=== PATIENT | female | born 1985 | race African-American/Black ===

== ENCOUNTER 2022-12-10 21:09 | Emergency (ER) | payer OTHER ==
[~2022-12-10] VITALS: Ht 149.9 cm; Wt 62.7 kg
[2022-12-10] MEDS ORDERED: DOXY-CAPS100 MG PO (23:46)
[2022-12-10] MEDS ORDERED: PREDNISONE20 MG PO (23:46)
[2022-12-11 00:06] VITALS: BP 114/78
== END 2022-12-11 00:06 | disposition home or self-care (01) | DRG 607 ==
LOC: ED 21:09
DX: S80.862A Insect bite (nonvenomous), left lower leg, initial encounter (principal); W57.XXXA Bitten or stung by nonvenomous insect and other nonvenomous arthropods, initial encounter

== ENCOUNTER 2024-04-04 00:36 | Emergency (ER) | payer OTHER ==
[~2024-04-04] VITALS: Ht 149.9 cm; Wt 90.0 kg
[~2024-04-04 00:36] MED LIST: DOXY-CAPS100 MG PO; PREDNISONE20 MG PO
[2024-04-04 00:46] VITALS: BP 177/99
[2024-04-04] MEDS ORDERED: Pantoprazole Sodium 40 MG VIAL (Protonix) IV STA (00:46)
[2024-04-04] MEDS ORDERED: SODIUM CHLORIDE 0.9% 1,000 ML IV STA (00:46)
[2024-04-04] MEDS ORDERED: LIDOCAINE VISCOUS 2% 15 ML UDC PO ONE ×2 (00:50→03:05)
[2024-04-04] MEDS ORDERED: ACETAMINOPHEN 500 MG TAB PO ONE (00:50)
[2024-04-04] MEDS ORDERED: ALUM & MAG HYDROX-SIMETHICONE 30 ML PO ONE ×2 (00:50→03:05)
[2024-04-04] MEDS ORDERED: PROMETHAZINE HCL 25 MG/ML AMP IV ONE (00:50)
[2024-04-04 01:14] VITALS: BP 155/126
[2024-04-04 01:16] LABS: BASO% 0.4 % (0-3); EOS% 1.8 % (0-8); HEMATOCRIT 41.7 % (37.0-47.0); HEMOGLOBIN 13.6 g/dl (12.0-16.0); IMMATURE GRANULOCYTES 1.6 % (0.0-5.0); LYMPH% 25.3 % (15-41); MEAN CELL VOLUME 92.5 fL CALC (80.0-100.0); MEAN CORPUSCULAR HGB 30.2 pG CALC (26.0-32.0); MEAN CORPUSCULAR HGB CONC 32.6 g/dL CAL (32.0-36.0); MONO% 7.4 % (2-13); NEUT# 6.19 thou/uL (2.00-7.15); NEUT% 63.5 % (42-76); RED BLOOD COUNT 4.51 mill/uL (4.20-5.60); RED CELL DISTRI WIDTH 15.7 % (11.5-15.5)
[2024-04-04 01:17] LABS: URINE BILIRUBIN - DIPSTICK Negative (NEGATIVE); URINE BLOOD DIPSTICK Moderate (NEGATIVE); URINE COLOR Yellow; URINE GLUCOSE - DIPSTICK 100 mg/dL (NEGATIVE); URINE KETONE Negative (NEGATIVE); URINE LEUK ESTERASE Trace (NEGATIVE); URINE PROTEIN - DIPSTICK >=300 mg/dL (NEG-TRACE); URINE SPECIFIC GRAVITY 1.025; URINE UROBILINOGEN - DIPSTICK 0.2 E.U./dL (0.2)
[2024-04-04 01:18] LABS: URINE NITRITE - DIPSTICK Negative (Negative)
[2024-04-04 01:25] LABS: URINE BACTERIA MODERATE hpf; URINE EPITHELIAL CELLS MANY EPI/hpf (0-FEW)
[2024-04-04 01:27] LABS: ALBUMIN 3.7 g/dL (3.2-5.0); BILIRUBIN, TOTAL 0.6 mg/dL (0.02-1.3); CREATININE 0.7 mg/dL (0.5-1.0); TOTAL PROTEIN 6.7 g/dL (6.3-8.2)
[2024-04-04] MEDS ORDERED: ONDANSETRON HCl 4 MG/2 ML SDV IV ONE (01:30)
[2024-04-04] MEDS ORDERED: LACTATED RINGER'S 1,000 ML IV ONE (01:30)
[2024-04-04] MEDS ORDERED: METOCLOPRAMIDE HCL 10 MG/2 ML SDV IV ONE (01:30)
[2024-04-04] MEDS ORDERED: ISOVUE-300 (Iopamidol) 100 ML SDV IV ONE (03:05)
[2024-04-04] MEDS ORDERED: DIATRIZOATE MEGLUMINE & SODIUM 30 ML/BTL PO ONE (03:05)
[2024-04-04] MEDS ORDERED: MORPHINE SULFATE 4 MG/ML VIAL IV ONE (03:05)
[2024-04-04] MEDS ORDERED: HYDROcodone 5 MG/Acetaminophen 325 MG/COMBO PO ONE (07:05)
[2024-04-04] MEDS ORDERED: TYLENOL # 31 TA1 PO (07:06)
[2024-04-04] MEDS ORDERED: PROMETHAZINE HY25 M1 PO (07:06)
[2024-04-04 07:20] VITALS: BP 155/126
== END 2024-04-04 07:20 | disposition home or self-care (01) | DRG 832 ==
LOC: ED 00:36
PROVIDERS: Family Medicine
DX: O99.619 Diseases of the digestive system complicating pregnancy, unspecified trimester (principal); K81.0 Acute cholecystitis; Z3A.00 Weeks of gestation of pregnancy not specified
CPT/HCPCS: J2405; J2470; J2550; J2765; Q9967